=== PATIENT | male | born 1955 | race Caucasian/White ===

== ENCOUNTER 2016-10-19 10:45 | Inpatient (IN) | payer OTHER ==
[~2016-10-19] VITALS: Ht 182.9 cm; Wt 81.6 kg
[~2016-10-19 10:45] MED LIST: ALTACE5 M1 PO; AUGMENTIN 875-1 EACH PO; FUROSEMIDE 40 M40 M1 PO; HUMULINR100 SUBQ; JANUVIA50 MG PO; LIPITOR40 MG PO; NORCO 5-325 TA1 EACH PO
[2016-10-19 10:50] VITALS: BP 107/67
[2016-10-19] MEDS ORDERED: ROCALTROL0.5 MCG PO (11:11)
[2016-10-19] MEDS ORDERED: LANTUS SUBQ (11:12)
[2016-10-19 12:07] LABS: URINE BILIRUBIN NEGATIVE (Negative); URINE BLOOD NEGATIVE (Negative); URINE COLOR YELLOW; URINE GLUCOSE-RANDOM* NEGATIVE (Negative); URINE KETONES NEGATIVE (Negative); URINE LEUKOCYTES-REFLEX NEGATIVE (Negative); URINE PROTEIN (DIPSTICK) 1+ (Negative); URINE UROBILINOGEN 0.2 E.U./dl (0.2-1.0)
[2016-10-19 12:21] LABS: CASTS None Seen /LPF (None Seen); CRYSTALS None Seen /LPF (None Seen); SQUAMOUS None Seen /LPF (0-3); URINE RBC None Seen /HPF (0-2); URINE WBC-REFLEX 0-5 Rare /HPF (0-5)
[2016-10-19 12:22] LABS: ABSOLUTE NEUTROPHILS 13.6 thou/uL (1.4-8.2); BASOPHILS 0.6 % (0.0-2.0); EOSINOPHILS 0.3 % (0.0-3.0); HEMATOCRIT 39.9 % (42.0-52.0); HEMOGLOBIN 13.3 gm/dL (14.0-18.0); LYMPHOCYTES 10.5 % (24.0-44.0); MANUAL DIFF NO; MCH 28.2 pg (26.0-34.0); MCHC 33.4 g/dL (28.0-37.0); MCV 84.5 fL (80.0-100.0); MONOCYTES 9.5 % (1.0-8.0); PLATELET COUNT 332 thou/uL (150-400); POLYS 79.1 % (36.0-66.0); RBC 4.73 mil/uL (4.50-6.00); RDW 14.6 % (10.5-14.5); WBC 17.2 thou/uL (4.0-11.0)
[2016-10-19 12:29] LABS: CALCIUM 9.9 mg/dL (8.5-10.1); CREATININE 2.9 mg/dL (0.7-1.3); POTASSIUM 3.7 mmol/L (3.5-5.1)
[2016-10-19 15:24] VITALS: BP 102/64
[2016-10-19 16:28] VITALS: BP 145/84
[2016-10-19 20:20] VITALS: BP 136/80
[2016-10-20 02:05] VITALS: BP 123/87
[2016-10-20 03:55] VITALS: BP 114/75
[2016-10-20 06:38] LABS: HEMATOCRIT 34.9 % (42.0-52.0); MCH 27.5 pg (26.0-34.0); MCHC 32.2 g/dL (28.0-37.0); MCV 85.2 fL (80.0-100.0); RDW 14.5 % (10.5-14.5); WBC 11.4 thou/uL (4.0-11.0)
[2016-10-20 06:40] LABS: HEMOGLOBIN 11.3 gm/dL (14.0-18.0); PLATELET COUNT 223 thou/uL (150-400)
[2016-10-20 06:42] LABS: MANUAL DIFF YES
[2016-10-20 06:50] LABS: CALCIUM 8.8 mg/dL (8.5-10.1); CREATININE 2.6 mg/dL (0.7-1.3)
[2016-10-20 06:54] LABS: POTASSIUM 4.8 mmol/L (3.5-5.1)
[2016-10-20 08:14] LABS: ABSOLUTE NEUTROPHILS 6.6 thou/uL (1.4-8.2); TOTAL CELL COUNT 100
[2016-10-20 08:15] LABS: ANISOCYTOSIS 1+
[2016-10-20 09:49] VITALS: BP 115/62
[2016-10-20] MEDS ORDERED: FENTANYL 0.50 MCG/ML IV PUSH (10:31)
== END 2016-10-20 13:45 | disposition short-term general hospital (02) | DRG 94 ==
LOC: ER 10:45 → 4E 15:05 → EROBS 15:05 → 4E 15:25
PROVIDERS: Emergency Medicine; Family Medicine
DX: G06.1 Intraspinal abscess and granuloma (principal); N17.0 Acute kidney failure with tubular necrosis; N18.4 Chronic kidney disease, stage 4 (severe); M46.44 Discitis, unspecified, thoracic region; E11.22 Type 2 diabetes mellitus with diabetic chronic kidney disease; I12.9 Hypertensive chronic kidney disease with stage 1 through stage 4 chronic kidney disease, or unspecified chronic kidney disease; R19.01 Right upper quadrant abdominal swelling, mass and lump; E11.610 Type 2 diabetes mellitus with diabetic neuropathic arthropathy; Z79.4 Long term (current) use of insulin; Z79.899 Other long term (current) drug therapy
CPT/HCPCS: 10783

== ENCOUNTER → 2016-11-11 | Outpatient (CLI) | payer OTHER ==
[~2016-11-11] MED LIST changes: +FENTANYL 0.50 MCG/ML IV PUSH; +LANTUS SUBQ; +ROCALTROL0.5 MCG PO
== END ==
LOC: MRI 08:12
DX: M54.6 Pain in thoracic spine (principal); G06.1 Intraspinal abscess and granuloma

== ENCOUNTER → 2016-12-20 | Outpatient (CLI) | payer OTHER | LOC: MRI 06:53 | DX: M46.44 Discitis, unspecified, thoracic region (principal); G06.1 Intraspinal abscess and granuloma ==

== ENCOUNTER → 2017-02-22 | Outpatient (CLI) | payer OTHER | LOC: MRI 10:29 → LABMALL 11:41 → MRI 11:41 | DX: M48.061 Spinal stenosis, lumbar region without neurogenic claudication (principal) ==

== ENCOUNTER → 2017-05-26 | Outpatient (CLI) | payer OTHER | LOC: MRI 09:47 | DX: M46.24 Osteomyelitis of vertebra, thoracic region (principal); M47.894 Other spondylosis, thoracic region; M51.24 Other intervertebral disc displacement, thoracic region ==

== ENCOUNTER 2021-02-16 22:56 | Inpatient (IN) | payer OTHER ==
[~2021-02-16] VITALS: Ht 182.9 cm; Wt 79.4 kg
[2021-02-16 22:57] VITALS: BP 81/40
[2021-02-16 23:52] LABS: HEMATOCRIT 49.4 % (42.0-52.0); HEMOGLOBIN 15.8 gm/dL (14.0-18.0); MCH 28.7 pg (26.0-34.0); MCV 89.7 fL (80.0-100.0); PLATELET COUNT 72 thou/uL (150-400); RBC 5.51 mil/uL (4.50-6.00); WBC 12.4 thou/uL (4.0-11.0)
[2021-02-16 23:58] LABS: ANION GAP 26 mmol/L (7-16); BUN < 1 mg/dL (7-18); CALCIUM 9.8 mg/dL (8.5-10.1); CHLORIDE 97 mmol/L (98-107); CO2 16 mmol/L (21-32); GLUCOSE 333 mg/dL (74-106); SODIUM 139 mmol/L (136-145)
[2021-02-17] VITALS (57 sets, daily range): BP systolic 48–106; BP diastolic 33–69
[2021-02-17 00:06] LABS: ALBUMIN 2.7 g/dL (3.4-5.0); LIPASE 63 U/L (73-393); SGOT 68 U/L (15-37); SGPT < 6 U/L (30-65); TOTAL PROTEIN 6.5 g/dL (6.4-8.2)
[2021-02-17 00:10] LABS: APTT 29.4 Seconds (24.5-32.8); INR 1.04; PROTIME 11.3 Seconds (10.5-12.1)
[2021-02-17 00:34] LABS: ABSOLUTE NEUTROPHILS 9.8 thou/uL (1.4-8.2); ANISOCYTOSIS 1+; BURR CELLS 2+; LARGE PLATELETS FEW; PLATELET ESTIMATE DECREASED; POIKILOCYTOSIS 1+
[2021-02-17 01:33] LABS: BE(vivo) -7.9 mmol/L (-2 to +3); PCO2 33.3 mmHg (35.0-45.0); PO2 70.4 mmHg (80.0-100.0); pH 7.327 (7.360-7.450); sO2 93.2 % (92.0-98.0)
[2021-02-17 03:02] LABS: URINE BILIRUBIN NEGATIVE (Negative); URINE BLOOD NEGATIVE (Negative); URINE CLARITY CLEAR; URINE COLOR YELLOW; URINE GLUCOSE-RANDOM* TRACE (Negative); URINE KETONES NEGATIVE (Negative); URINE LEUKOCYTES-REFLEX NEGATIVE (Negative); URINE NITRITE-REFLEX NEGATIVE (Negative); URINE PROTEIN (DIPSTICK) NEGATIVE (Negative); URINE SPECIFIC GRAVITY 1.015 (1.005-1.035); URINE UROBILINOGEN 0.2 E.U./dl (0.2-1.0)
[2021-02-17] MEDS ORDERED: CALCITRIOL0.5 MCG PO (05:57)
[2021-02-17] MEDS ORDERED: LIPITOR40 MG PO (05:57)
[2021-02-17] MEDS ORDERED: RAMIPRIL5 MG PO (05:58)
[2021-02-17] MEDS ORDERED: NOVOLOG100 UNIT/1 SUBQ (05:58)
[2021-02-17] MEDS ORDERED: LANTUS SUBQ (05:59)
[2021-02-17 08:43] LABS: HEMATOCRIT 44.4 % (42.0-52.0); HEMOGLOBIN 14.2 gm/dL (14.0-18.0); MCH 28.7 pg (26.0-34.0); MCHC 32.1 g/dL (28.0-37.0); MCV 89.5 fL (80.0-100.0); RBC 4.96 mil/uL (4.50-6.00); RDW 14.1 % (10.5-14.5); WBC 6.9 thou/uL (4.0-11.0)
[2021-02-17 09:00] LABS: ALBUMIN 1.9 g/dL (3.4-5.0); CALCIUM 8.6 mg/dL (8.5-10.1); CREATININE 4.7 mg/dL (0.7-1.3); MAGNESIUM 1.8 mg/dL (1.8-2.4); PHOSPHORUS 4.2 mg/dL (2.5-4.9); POTASSIUM 3.8 mmol/L (3.5-5.1)
--- NOTE | 2021-02-17 09:28 | NUR ---
vat consulted FOR PICC LINE, PT IS RENAL WITH LOW PLATELETE COUNT, RECOMMENDED IR FOR SC OR TICC. SPOKE WITH PRIMARY RN, WILL DISCUSS WITH DR STORY
[2021-02-17 09:51] LABS: ABSOLUTE NEUTROPHILS 6.3 thou/uL (1.4-8.2)
[2021-02-17 09:53] LABS: ANISOCYTOSIS SLIGHT; PLATELET COUNT 36 thou/uL (150-400)
--- NOTE | 2021-02-17 11:31 | NUR ---
VAT AGAIN SPOKE WITH PRIMARY RN, PT HAS LOW PLT COUNT UNABLE TO SAFELY PLACE IJ, PT NEEDS TO HAVE IR FOR CENTRAL LINE PLACEMENT
[2021-02-17 13:52] LABS: FOLIC ACID 10.4 ng/mL (8.6-58.9)
--- NOTE | 2021-02-17 16:04 | NUR ---
patient arrived on to the unit at 1015 with belongings accounted for.
--- NOTE | 2021-02-17 19:02 | NUR ---
PATIENT NOT PROGRESSING TOWARDS THE PLAN OF CARE EVIDENCED BY INCREASED NEED FOR LEVOPHED THROUGHOUT THE DAY.
--- NOTE | 2021-02-17 23:57 | NUR ---
ASSUMED CARE OF PT AT 1900. CONTACTED DR. VINES AT 2250 DUE TO CHANGE IN PT STATUS. PT BEGAN TO BECOME INCREASINGLY CONFUSED AND RESTLESS, PULLING ON LINES AND TAKING OFF OXYGEN. PT BEGAN DESATING INTO THE MID 80'S AND WAS INCREASED FROM 3L NC TO 15L NC. PT HAD A DECREASE IN URINE OUPUT SO DR. FREEMAN WAS PAGED AT 3291. ORDERS WERE GIVEN BY BOTH DOCTORS. WILL CONTINUE TO MONITOR.
[2021-02-18] VITALS (45 sets, daily range): BP systolic 63–146; BP diastolic 31–72
[2021-02-18 01:59] LABS: BE(vivo) -13.9 mmol/L (-2 to +3); HCO3 10.9 mmol/L (22.0-26.0); PCO2 23.3 mmHg (35.0-45.0); PO2 110.6 mmHg (80.0-100.0); pH 7.287 (7.360-7.450); sO2 97.7 % (92.0-98.0)
[2021-02-18 04:06] LABS: HEMOGLOBIN 14.3 g/dL (13.0-17.7)
[2021-02-18 04:54] LABS: CALCIUM 7.2 mg/dL (8.5-10.1); CREATININE 4.6 mg/dL (0.7-1.3); MAGNESIUM 1.8 mg/dL (1.8-2.4)
[2021-02-18 05:13] LABS: POTASSIUM 5.3 mmol/L (3.5-5.1)
[2021-02-18 05:24] LABS: HEMATOCRIT 35.5 % (42.0-52.0); MCH 28.7 pg (26.0-34.0); MCHC 31.9 g/dL (28.0-37.0); MCV 90.1 fL (80.0-100.0); PLATELET COUNT 22 thou/uL (150-400); RBC 3.94 mil/uL (4.50-6.00); RDW 13.9 % (10.5-14.5); WBC 19.3 thou/uL (4.0-11.0)
[2021-02-18 05:35] LABS: HEMOGLOBIN 11.3 gm/dL (14.0-18.0)
--- NOTE | 2021-02-18 07:02 | EKG ---
[address] [address] ELECTROCARDIOGRAM REPORT Name: YVETTE ROGER Navdeep JR Room #: 241-P [facility] IN M.R.#: [id number] Admission: 02/17/21 Attend Phys: Chalino Hilton MD Discharge: Date of : 55 Report #: [id number] [facility] ED Test Date: 2021-02-17 Test Time: 00:34:42 Pat Name: YVETTE ROGER Department: Room: 241 Gender: M Label Stitcher: lisa : 1955 Requested By: Dylan Wells Order Number: [id number] MD: Stiven Spence Measurements Intervals [place] Rate: 104 P: 52 [place]: 155 QRS: -14 QRSD: 85 T: 19 QT: 342 QTc: 450 Interpretive Statements Sinus tachycardia No previous ECG available for comparison Electronically Signed On 02-18-2021 7:01:49 CDT by Stiven Spence [email or web address] <ELECTRONICALLY SIGNED> By: Stiven Spence MD, [facility] 02/18/21 0701 0034 0034 Stiven Spence MD, FACC /EPI
--- NOTE | 2021-02-18 07:54 | NUR ---
CONTACTED DR VINES AT 0131 ABOUT HYPOTENSION OF PT. ORDERS GIVEN. SEE MAR
--- NOTE | 2021-02-18 09:55 | NUR ---
ASSUMED CARE OF PT AT 0700 PT IS VERY RESTLESS, YELLING OUT BUT NOT MAKING ANY SENSE I PAGE DR. VINES AT 0946 AND HE CALLED BACK AND 0950 AND I ASKED FOR AN ART LINE DUE TO THE FACT THAT WE ARE RUNNING 3 PRESSORS. HE TOLD ME TO CALL [facility] TO SEE IF THEY CAN PLACE ONE.
--- NOTE | 2021-02-18 10:43 | NUR ---
SPOKE TO DR. FRANCO AT 1015 AND SHE STATED THEY WERE VERY BUSY TODAY BUT THAT SHE WOULD GET HERE SOON SHE CAN TO PUT IN THE PT ART LINE
--- NOTE | 2021-02-18 11:30 | NUR ---
Chart review, changes in resp. went from nasal cannula to bipap and possible going to need to be intubated. Will cont following as needed for dc needs.
--- NOTE | 2021-02-18 11:47 | HC ---
[facility] [place] [address] CONSULTATION Name: YVETTE ROGER JR Room #: 241-P ADM IN M.R.#: [id number] Admission: 02/17/21 Attend Phys: Terrence Pang MD Discharge: Date of : 55 Report #: [id number] THIS REPORT FOR: cc: Latrell Maier David J. DO Barry, Joseph W. MD ~ DATE OF SERVICE: 02/17/2021 INFECTIOUS DISEASE CONSULTATION ATTENDING PHYSICIAN: Dr. Hilton. REASON FOR EVALUATION: Septic shock, suspected left psoas abscess. HISTORY OF PRESENT SUBJECTIVE: Chart reviewed. The patient examined. This is a 66-year-old gentleman who presented to the Emergency Room with complaints of nausea and emesis, progressive weakness, not clearly had any fevers. Did have some chills, mild cough, but no significant dyspnea. He notably had previous history of vertebral ___. Lactic acid elevated at 9.2. CRP of 437. Initial CBC, mild elevation in white count, however, had a significant bandemia. Creatinine is 5.0. Coronavirus testing was negative. Borderline hypoxemia on room air, pO2 of 70. Urinalysis otherwise unremarkable. Procalcitonin elevated at 13.88. CT abdomen and pelvis was performed, noted inflammation of fluid adjacent to the left psoas muscle, left iliac muscle, moderate amount of edema and swelling with left iliac muscle. Small amount of gas, small diverticula without diverticulitis, nonobstructing calculus, lower pole becka of the right kidney, left kidney was normal. Blood cultures collected at time of admission, now with growth of gram-positive cocci suggestive of strep. He was empirically placed on Zosyn. At this point, he has required some norepinephrine to maintain blood pressure support. He is mildly encephalopathic at this point. Spouse is present. ALLERGIES: None known. MEDICATIONS: Include insulin glargine, insulin lispro, fentanyl, famotidine, Zosyn. 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 SOCIAL HISTORY: Nonsmoker, no ethanol, no illicit drug use. FAMILY HISTORY: Noncontributory. REVIEW OF SYSTEMS: Otherwise noted above. [address] [address] CONSULTATION Name: YVETTE ROGER Navdeep Room #: [facility] IN .R.#: [id number] Admission: 02/17/21 Attend Phys: Terrence Pang MD Discharge: Date of : 55 Report #: [id number] PHYSICAL EXAMINATION: GENERAL: He is somewhat chronically ill-appearing, in moderate distress, mildly encephalopathic. VITAL SIGNS: Temperature 97.7, pulse 113, respirations 16, blood pressure 96/60. SKIN: Warm, dry, no rashes. HEENT: Normocephalic. Extraocular muscles intact. NECK: Supple. LUNGS: Diminished breath sounds. HEART: Tachycardic, regular, do not appreciate a murmur. ABDOMEN: Soft, mildly distended. No peritoneal signs. GENITOURINARY AND RECTAL: Deferred. LABORATORY DATA: Most recent lactic acid of 7.9. Blood cultures described above. Procalcitonin 13.88. CBC from morning on 02/17/2021, white count of 6.9, H and H 14.2 and 44.4, platelets of 36, 69% neutrophils, 22% bands. Electrolytes, sodium 144, potassium 3.8, chloride 106, bicarbonate is 19, anion gap of 19, BUN and creatinine 100 and 4.7, glucose of 268. Albumin 1.9. CT abdomen and pelvis as noted above. Chest x-ray, question of atelectasis and right lower lobe with elevation of right hemidiaphragm. ASSESSMENT AND PLAN: Streptococcal septicemia with imaging evidence of psoas focal area of pyogenic infection. We will continue therapy, pending the results of the ID and susceptibility testing, Zosyn and vancomycin certainly minimize exposure, although he is critically ill. We will check repeat blood cultures tomorrow. Also, echo to exclude a endovascular infection. He remains quite tenuous. Certainly at risk for complications. We will add incentive spirometry. Discussed with the patient's spouse. <ELECTRONICALLY SIGNED> By: Keny Ramesh MD 02/18/21 1147 1410 [id number] Keny Ramesh MD /nt
[2021-02-18 12:07] LABS: ANA INTERPRETATION Positive (Negative)
[2021-02-18 13:11] LABS: ABSOLUTE NEUTROPHILS 16.4 thou/uL (1.4-8.2); METAMYELOCYTES 1 %
[2021-02-18 13:27] LABS: BE(vivo) -27.1 mmol/L (-2 to +3); HCO3 4.4 mmol/L (22.0-26.0); PO2 243.4 mmHg (80.0-100.0)
[2021-02-18 13:28] LABS: PCO2 22.2 mmHg (35.0-45.0); pH 6.918 (7.360-7.450)
[2021-02-18 14:40] LABS: INR 1.41; PROTIME 15.1 Seconds (10.5-12.1)
[2021-02-18 14:50] LABS: APTT 65.5 Seconds (24.5-32.8)
== END 2021-02-18 15:20 | DRG 871 ==
LOC: ER 22:56 → ICU 02-17 01:32 → EROBS 02-17 01:32 → ICU 02-17 10:10
PROVIDERS: Emergency Medicine; Internal Medicine; Internal Medicine Pulmonary Disease; Nurse Practitioner; ADMIT Internal Medicine; ATTEND Internal Medicine
PROC: B548ZZA Ultrasonography of Superior Vena Cava, Guidance (ICD-10-PCS; principal; 2021-02-17)
PROC: B5181ZA Fluoroscopy of Superior Vena Cava using Low Osmolar Contrast, Guidance (ICD-10-PCS; principal; 2021-02-17)
PROC: 02HV33Z Insertion of Infusion Device into Superior Vena Cava, Percutaneous Approach (ICD-10-PCS; principal; 2021-02-17)
PROC: 5A1935Z Respiratory Ventilation, Less than 24 Consecutive Hours (ICD-10-PCS; 2021-02-18)
PROC: 0BH17EZ Insertion of Endotracheal Airway into Trachea, Via Natural or Artificial Opening (ICD-10-PCS; 2021-02-18)
PROC: 5A09357 Assistance with Respiratory Ventilation, Less than 24 Consecutive Hours, Continuous Positive Airway Pressure (ICD-10-PCS; 2021-02-18)
DX: A40.0 Sepsis due to streptococcus, group A (principal); J96.01 Acute respiratory failure with hypoxia; R65.21 Severe sepsis with septic shock; K68.12 Psoas muscle abscess; E43 Unspecified severe protein-calorie malnutrition; G92.8 Other toxic encephalopathy; N17.0 Acute kidney failure with tubular necrosis; D65 Disseminated intravascular coagulation [defibrination syndrome]; M72.6 Necrotizing fasciitis; M62.82 Rhabdomyolysis; B17.9 Acute viral hepatitis, unspecified; N18.4 Chronic kidney disease, stage 4 (severe); M31.9 Necrotizing vasculopathy, unspecified; A52.16 Charcot's arthropathy (tabetic); Z20.822 Contact with and (suspected) exposure to COVID-19; Z66 Do not resuscitate; E11.22 Type 2 diabetes mellitus with diabetic chronic kidney disease; E78.5 Hyperlipidemia, unspecified; S91.302A Unspecified open wound, left foot, initial encounter; R74.01 Elevation of levels of liver transaminase levels; I12.9 Hypertensive chronic kidney disease with stage 1 through stage 4 chronic kidney disease, or unspecified chronic kidney disease; N20.0 Calculus of kidney; K57.90 Diverticulosis of intestine, part unspecified, without perforation or abscess without bleeding; K44.9 Diaphragmatic hernia without obstruction or gangrene; M60.88 Other myositis, other site; S30.1XXA Contusion of abdominal wall, initial encounter; M79.81 Nontraumatic hematoma of soft tissue; E87.5 Hyperkalemia; X58.XXXA Exposure to other specified factors, initial encounter; Y93.89 Activity, other specified; Y92.89 Other specified places as the place of occurrence of the external cause; Y99.8 Other external cause status
CPT/HCPCS: 10203